=== PATIENT | female | born 1950 | race Hispanic/Latino ===

== ENCOUNTER 2017-02-07 06:27 | Day surgery (SDC) | payer MEDICARE ==
[2017-02-07 07:52] VITALS: BMI 38.2
[2017-02-07] MEDS ORDERED: Lactated Ringer's 500 ML IV ONE (08:47)
[2017-02-07] MEDS ORDERED: Lidocaine Hydrochloride 5 ML INJ ONE (08:51)
[2017-02-07] MEDS ORDERED: Propofol 10 mg/ml Inj (20 ML) ONE (08:51)
[2017-02-07] MEDS ORDERED: Atropine 0.4 mg/ml Inj (1 mL) ONE (09:03)
[2017-02-07] MEDS ORDERED: Lactated Ringer's 500 ML IV SCH (09:15)
[2017-02-07 09:48] VITALS: RESP 15; TEMP 97.2
[2017-02-07 10:02] VITALS: O2SAT 98
[2017-02-07 10:17] VITALS: PULSE 64
[2017-02-07 10:50] VITALS: BP 107/56
== END 2017-02-07 10:48 | disposition home or self-care (01) ==
LOC: C.ENDO 06:27
PROVIDERS: ATTEND Internal Medicine Gastroenterology
DX: Z12.11 Encounter for screening for malignant neoplasm of colon (principal); D12.5 Benign neoplasm of sigmoid colon; K64.0 First degree hemorrhoids
CPT/HCPCS: 45385; 82948; 88305; J0461; J2704; J3010; J7120